=== PATIENT | male | born 1960 | race African-American/Black ===

== ENCOUNTER 2018-10-05 05:04 | Day surgery (SDC) | payer OTHER ==
[2018-10-02 11:45] VITALS: BMI 26.2
[2018-10-05] MEDS ORDERED: PROPOFOL 20 ML ONE (07:02)
[2018-10-05] MEDS ORDERED: MIDAZOLAM HCL 2 MG/2 ML SINGLE DOSE VIAL ONE (07:03)
[2018-10-05] MEDS ORDERED: LIDOCAINE HCL/PF 2% SDV 5ML VIAL ONE (07:03)
[2018-10-05] MEDS ORDERED: SUCCINYLCHOLINE CHLORIDE 200 MG/10 ML VIAL ONE (07:10)
[2018-10-05] MEDS ORDERED: ATROPINE SO4 0.4 MG/1 ML VIAL ONE (07:10)
[2018-10-05] MEDS ORDERED: ROCURONIUM BROMIDE 50 MG/5 ML VIAL ONE (07:11)
--- NOTE | 2018-10-05 07:51 | HP ---
History & Physical Update - History History: No Change - Physical Physical: No Change - Assessment Assessment: No Change - Plan Plan: No Change (for open left inguinal hernia repair w/mesh; r/b/t/a/'s d/w the patient pre-op in the office and informed consent obtained.)
[2018-10-05] MEDS ORDERED: DESFLURANE GAS 240 ML BOTTLE IH ONE (07:54)
[2018-10-05] MEDS ORDERED: ePHEDrine SULFATE 50 MG/1 ML AMPULE ONE (08:10)
[2018-10-05] MEDS ORDERED: ceFAZolin SODIUM 1 GM VIAL IVPB ONE (08:11)
[2018-10-05] MEDS ORDERED: ceFAZolin SODIUM 1 GM VIAL ONE (08:12)
[2018-10-05] MEDS ORDERED: LIDOCAINE HCL 1%, 10 MG/ML (20ML VIAL) ONE (08:22)
[2018-10-05] MEDS ORDERED: BUPIVACAINE HCL/PF 0.5% (5MG/ML) 10 ML VIAL ONE (08:22)
[2018-10-05] MEDS ORDERED: BUPIVACAINE HCL/PF 0.5% (5MG/ML) 10 ML VIAL IJ ONE (08:30)
[2018-10-05] MEDS ORDERED: LIDOCAINE HCL 1%, 10 MG/ML (20ML VIAL) INF ONE (08:30)
[2018-10-05] MEDS ORDERED: DEXAMETHASONE SOD PHOSPHATE 4 MG/1 ML VIAL ONE ×2 (08:37→10:56)
[2018-10-05] MEDS ORDERED: KETOROLAC TROMETHAMINE 30 MG/1 ML VIAL ONE (08:41)
[2018-10-05] MEDS ORDERED: GLYCOPYRROLATE 0.2 MG/1 ML VIAL ONE (08:41)
[2018-10-05] MEDS ORDERED: NEOSTIGMINE METHYLSULFATE 0.5 MG/ML - 10 ML MDV ONE (08:41)
[2018-10-05] MEDS ORDERED: oxyCODONE HCL 5 MG TABLET PO PRN (10:18)
[2018-10-05] MEDS ORDERED: ONDANSETRON 4 MG/2 ML VIAL IVPUSH PRN (10:18)
--- NOTE | 2018-10-05 10:20 | OP ---
Operative Note - Note: Operative Date: 10/05/18 Pre-Operative Diagnosis: Left inguinal hernia Operation: Left inguinal hernia repair with mesh Post-Operative Diagnosis: Same as Pre-op Surgeon: Nilay Garcia Communication Clerk: Reji Aguustin Anesthesia: General Estimated Blood Loss (mls): 5 Operative Report Dictated: Yes
--- NOTE | 2018-10-05 10:21 | SURG ---
Surgery Imaging Manager Note Imaging Manager: Reji Augustin PA-C Date of Service: 10/05/18 Diagnosis: Left inguinal hernia Procedure: Left inguinal hernia repair with mesh I was present for the entirety of the operative procedure. For further detail, please refer to operative report. Visit type - Case Type Case Type: Scheduled - Emergency Emergency Visit: No - New patient This patient is new to me today: Yes Date on this admission: 10/05/18
[2018-10-05] MEDS ORDERED: LACTATED RINGERS SOLUTION 1,000 ML IV SCH (10:30)
[2018-10-05 12:09] VITALS: PULSE 60; TEMP 98.1
[2018-10-05] MEDS ORDERED: oxyCODONE HCL 5 MG TABLET ONE (12:25)
[2018-10-05 13:27] VITALS: BP 126/81
--- NOTE | 2018-10-06 10:20 | OP ---
DATE OF OPERATION: 10/05/2018 PREOPERATIVE DIAGNOSIS: Left inguinal hernia. POSTOPERATIVE DIAGNOSIS: Left inguinal hernia. PROCEDURE: Repair of left inguinal hernia with mesh. SURGEON: Nilay Garcia MD ORNAMENTAL IRON WORKER: Reji Augustin PA-C ANESTHESIA: General. OPERATIVE FINDINGS: There was an indirect left inguinal hernia and attenuated floor. The rest of the findings were unremarkable. PROCEDURE: The patient was placed on the operating room table in supine position and after the induction of general anesthesia. The patient's abdomen was prepped with ChloraPrep and draped in sterile fashion. A timeout was taken, and a left groin incision mapped out and infiltrated with 1% xylocaine and 0.5% Marcaine in equal concentration. Incision was made with the scalpel through skin and subcutaneous tissue and Dimitris fascia down to the external oblique fascia. This was divided proximally and distally in the direction of its fibers and through the external ring. The cord structures and nerve were elevated to the level of the pubic tubercle. The previously noted findings were observed. The indirect hernia was reduced and the sac dissected from the cord structures up to the internal ring where it was reduced. Next a piece of Parietex ProGrip mesh was fashioned to the floor of the inguinal canal and anchored at the pubic tubercle shelving edge and conjoint tendon with interrupted 2-0 Prolene. A keyhole was created for the cord structures and the tails of the mesh brought above the level of the internal ring and crossed and anchored there with interrupted 2-0 Prolene as well. Hemostasis was checked for and noted to be good, and irrigation was carried out. The cord structures and nerve were returned to their normal anatomic position and hemostasis again verified. The external oblique fascia was then closed over the cord structures using continuous 2-0 Vicryl recreating the external ring. Dimitris fascia was reapproximated with interrupted 2-0 Vicryl, the deep dermis with interrupted 3-0 Vicryl, and the skin edges with 4-0 Monocryl in a subcuticular continuous fashion. Steri-Strips and dry sterile dressings were placed, and the procedure terminated at this point. The patient aroused from general anesthesia and transferred to the postanesthesia care unit in stable condition awake and alert. ESTIMATED BLOOD LOSS: 10 mL. REPLACEMENTS: Crystalloid. DRAINS: None. SPECIMENS: None. I, Nilay Garcia MD, was physically present in the operating room from the time the patient was placed on the operating room table until he was transferred to the postanesthesia care unit in my accompaniment. MD CHINTAN Brewster/[id number] MTDD
== END 2018-10-05 13:28 | disposition home or self-care (01) ==
LOC: JASU-SURG 05:04
PROVIDERS: ATTEND Surgery
PROC: 0YU60JZ Supplement Left Inguinal Region with Synthetic Substitute, Open Approach (ICD-10-PCS; principal; 2018-10-05 08:00)
DX: K40.90 Unilateral inguinal hernia, without obstruction or gangrene, not specified as recurrent (principal)
CPT/HCPCS: 94760